=== PATIENT | female | born 2005 | race Caucasian/White ===

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

== ENCOUNTER 2025-01-18 20:10 | Emergency (ER) | payer OTHER ==
[2025-01-18 20:24] VITALS: RESP 16; TEMP 98.1; BMI 41.3
[2025-01-18] MEDS ORDERED: ONDANSETRON 4 MG/2 ML VIAL ONE (21:22)
[2025-01-18] MEDS: SODIUM CHLORIDE 1,000 ML IV STA (21:31)
[2025-01-18] MEDS: morphine CARPU-JECT 4 MG/1 ML DISP.SYRIN IVPUSH ONE (21:31)
[2025-01-18] MEDS: ONDANSETRON 4 MG/2 ML VIAL IVPUSH ONE (21:32)
[2025-01-18 21:38] LABS: ABSOLUTE IMMATURE GRANULOCYTES 0.04 x10^3/uL (0.0-0.031); BASOPHILS # 0.08 x10^3/uL (0.01-0.08); EOSINOPHIL % 2.7 % (0.7-5.8); EOSINOPHILS # 0.29 x10^3/uL (0.04-0.36); MCHC 34.0 g/dl (32.2-35.5); MEAN CELL VOLUME 85.7 fl (79.4-94.8); MEAN PLT VOLUME 10.1 fl (9.4-12.3); MONOCYTE # 0.71 x10^3/uL (0.24-0.86); MONOCYTE % 6.5 % (4.7-12.5); RDW 13.8 % (12.0-16.2)
[2025-01-18 21:53] LABS: GLUCOSE,RANDOM 117.0 mg/dL (74-106)
[2025-01-18 21:54] LABS: CO2 26.0 mmol/L (21-32)
[2025-01-18 21:56] LABS: EPI CELLS 36 /uL (0-25.1); HCG,QUALITATIVE URINE Negative; HYALINE CASTS 1 /uL (0-3.1); URINE APPEARANCE CLEAR; URINE BACTERIA 912 /uL (0-1359); URINE BILIRUBIN NEGATIVE (NEGATIVE); URINE COLOR YELLOW; URINE GLUCOSE (UA) NEGATIVE (NEGATIVE); URINE KETONE TRACE (NEGATIVE); URINE LEUK ESTERASE TRACE (NEGATIVE); URINE NITRITE NEGATIVE (NEGATIVE); URINE PROTEIN NEGATIVE (NEGATIVE); URINE RBC 54 /uL (0-23.9); URINE UROBILINOGEN 0.2 mg/dL (0.2-1.0); URINE WBC 43 /uL (0-25.8)
[2025-01-18 21:57] LABS: CREATININE 0.6 mg/dL (0.55-1.3); SGOT/AST 12.0 U/L (15-37); SGPT/ALT 23.0 U/L (13-61)
[2025-01-18 21:59] LABS: TOT PROT 6.5 g/dl (6.4-8.2)
[2025-01-18 22:00] LABS: ALK PHOS 91.0 U/L (45-117)
[2025-01-18 22:34] VITALS: BP 109/67; PULSE 72
[2025-01-18 22:46] LABS: HCV DIAGNOSTIC IN-HOUSE W/RFLX NON-REACTIVE (NONREACTIVE); HIV INTERPRETATION NEGATIVE (NEGATIVE)
== END 2025-01-18 22:36 | disposition home or self-care (01) ==
LOC: JER 20:10
PROC: 3E033NZ Introduction of Analgesics, Hypnotics, Sedatives into Peripheral Vein, Percutaneous Approach (ICD-10-PCS; principal; 2025-01-18)
PROC: 3E033GC Introduction of Other Therapeutic Substance into Peripheral Vein, Percutaneous Approach (ICD-10-PCS; 2025-01-18)
PROC: 3E0337Z Introduction of Electrolytic and Water Balance Substance into Peripheral Vein, Percutaneous Approach (ICD-10-PCS; 2025-01-18)
DX: N10 Acute pyelonephritis (principal); R10.12 Left upper quadrant pain; R19.7 Diarrhea, unspecified; R11.0 Nausea
CPT/HCPCS: 36415; 80053; 81003; 83690; 84703; 85025; 86803; 87086; 87389; 99284-25